=== PATIENT | male | born 1990 | race Caucasian/White ===

== ENCOUNTER → 2022-09-16 | Emergency (ER) | payer OTHER ==
[~2022-09-16] VITALS: Ht 170.2 cm; Wt 90.7 kg
[~2022-09-16] MED LIST: NALO4SPR NS
--- NOTE | 2022-09-16 12:30 | NUR ---
BIBA FOR OVERDOSE. WAS FOUND UNRESPONSIVE IN CAR WITH PINPOINT PUPILS, NARCAN GIVEN EN ROUTE TO ER, PATIENT NOW A/O X 3 BUT FORGETFUL AND CONFUSED. ON 5 LPM O2 VIA CANNULA. WILL CONTINUE TO MONITOR.
--- NOTE | 2022-09-16 13:36 | NUR ---
Patient discharged to home in stable condition. Written and verbal after care instructions given. Patient verbalizes understanding of instruction. IV removed. Catheter intact and site benign. Pressure and 4x4 applied to site. No bleeding noted. PT picked up by mother.
[2022-09-16 13:37] VITALS: BP 129/79
--- NOTE | 2022-09-16 13:41 | NUR ---
SW Consult: SW consult was requested due to overdose. Pt was found infront of Jody Alvares overdosed on fentanyl. Patient appeared to be alert and oriented x2. Patient presented confused and disorganized. He stated he cannot recall what happened and what type of drug he took. Mother Oscar ([phone]) was present and wanted mother to be present. Mother and pt stated that he has been in detox multiple times at [facility]. SW offered him treatment centers and pt refused to go. Pt stated that he would want to go home. Pt was unable to identify the type of drugs he has been abusing. He stated he has not used fentanyl for years. Pt has relapsed. SW gave pt substance resources. DC PLAN: Pt will go back home located at [id number] [place], [place] [address], [address]; ([phone]). Substance Abuse resources provided included: [facility] Substance Abuse Self-Helpline ([facility]) ; [facility] [address] [facility]. [place] [id number] ; [facility] [address] [facility] [address] [facility] [address] [facility] [address] ; [facility] [address] [facility] [id number] ; [facility] [address] [facility] [address] [facility] [address] [facility] [address] ; [facility] Substance Abuse Helpline([facility])-[facility] ; [facility] ; [facility] [place]; [facility] [place]; [facility] [place]; [facility] [place]; [facility] [place]; [facility] [place]; [facility]. [facility]; Alcoholics Anonymous -sfv; Oz ; Marijuana Anonymous -SFV; Narcotics Anonymous [email or web address];
== END | disposition home or self-care (01) ==
LOC: ER 12:30
DX: F10.10 Alcohol abuse, uncomplicated (principal); Z79.899 Other long term (current) drug therapy